=== PATIENT | female | born 1985 | race Asian ===

== ENCOUNTER 2022-02-18 13:28 | Emergency (ER) | payer MEDICAID ==
[~2022-02-18] VITALS: Ht 165.1 cm; Wt 86.2 kg
[2022-02-18] MEDS ORDERED: SODIUM CHLORIDE 0.9% 1,000 ML IVB ONE (13:45)
[2022-02-18 15:18] LABS: Basophils # (auto) 0 10 ^3/uL (0-0.2); Basophils % (auto) 0.7 % (0.0-2.0); Eosinophils # (auto) 0.2 10 ^3/uL (0-0.8); Eosinophils % (auto) 2.9 % (0.0-7.0); Hemoglobin 14.1 g/dL (12.2-16.2); Lymphocytes # (auto) 2.2 10 ^3/uL (0.4-5.4); Lymphocytes % (auto) 37.1 % (10.0-50.0); Mean Corpuscular Hemoglobin 28.9 pg (28.0-32.0); Mean Corpuscular Hgb Conc. 34.3 g/dL (32.0-36.0); Mean Corpuscular Volume 84.4 fL (80.0-100.0); Monocytes # (auto) 0.4 10 ^3/uL (0-1.3); Monocytes % (auto) 6.1 % (0.0-12.0); Neutrophils # (auto) 3.1 10 ^3/uL (1.6-8.6); Neutrophils % (auto) 53.2 % (37.0-80.0); Nucleated Red Blood Cells % 0.1 %; Red Blood Cells 4.86 10^6/uL (4.0-5.20); Red Cell Distribution Width 14.3 % (11.8-14.3); White Blood Cell 5.9 10^3/uL (4.4-10.8)
[2022-02-18 15:37] LABS: Albumin 3.7 g/dL (3.4-5.0); Anion Gap 8 (5-15); BUN/Creatinine Ratio 14.3; Blood Alcohol < 3.0 mg/dL (0-5); Blood Urea Nitrogen 14 mg/dL (7-18); Calcium 8.9 mg/dL (8.5-10.1); Carbon Dioxide 24 mmol/L (21-32); Chloride 109 mmol/L (98-107); GFR African American 83 mL/min; GFR Non-African American 69 mL/min; Glucose 105 mg/dL (74-106); Potassium 4.3 mmol/L (3.5-5.1); Sodium 141 mmol/L (136-145)
[2022-02-18 15:40] LABS: Alanine Aminotransferase 45 U/L (13-56); Alkaline Phosphatase 112 U/L (45-117); Aspartate Aminotransferase 26 U/L (15-37); Bilirubin, Total 0.3 mg/dL (0.2-1.0); Total Protein 7.3 g/dL (6.4-8.2)
[2022-02-18 17:14] VITALS: BP 134/74
[2022-02-18 18:56] LABS: Urine Bacteria None Seen /hpf (None Seen)
[2022-02-18 19:27] LABS: Alcohol, Urine < 3.0 mg/dL (0-10); Amphetamine Screen, Urine NEGATIVE (NEGATIVE); Barbiturate Scree,Urine NEGATIVE (NEGATIVE); Benzodiazephine Screen, Urine NEGATIVE (NEGATIVE); Cannabinoid Screen, Urine NEGATIVE (NEGATIVE); Cocaine Screen, Urine NEGATIVE (NEGATIVE); Opiate Scree,Urine NEGATIVE (NEGATIVE); Phencyclidine Screen, Urine NEGATIVE (NEGATIVE)
[2022-02-18 20:23] LABS: Urine Specific Gravity 1.009 (1.001-1.035)
[2022-02-18 20:24] LABS: Urine Blood Negative /uL (Negative)
[2022-02-18 20:26] LABS: Urine Mucus NONE SEEN (None Seen); Urine WBC <1 /hpf (0 - 5)
== END 2022-02-18 16:45 | disposition home or self-care (01) ==
LOC: ER 13:28
DX: S00.03XA Contusion of scalp, initial encounter (principal); R55 Syncope and collapse; I10 Essential (primary) hypertension; E11.9 Type 2 diabetes mellitus without complications; Z91.013 Allergy to seafood; W18.39XA Other fall on same level, initial encounter; Y93.89 Activity, other specified; Y92.89 Other specified places as the place of occurrence of the external cause; Y99.8 Other external cause status
CPT/HCPCS: 36415; 70450; 80053; 80307; 80320; 81001; 81025; 84484; 85025; 93005; 96360; 96361; 99285; J7030

== ENCOUNTER 2022-10-11 01:15 | Emergency (ER) | payer MEDICAID ==
[~2022-10-11] VITALS: Ht 188 cm; Wt 85.0 kg
[2022-10-11 10:00] VITALS: BP 126/74
== END 2022-10-11 10:35 | disposition home or self-care (01) ==
LOC: EDBD 01:15 → ER 01:15
DX: S09.8XXA Other specified injuries of head, initial encounter (principal); I10 Essential (primary) hypertension; Z91.013 Allergy to seafood; W18.39XA Other fall on same level, initial encounter; Y93.89 Activity, other specified; Y92.89 Other specified places as the place of occurrence of the external cause; Y99.8 Other external cause status
CPT/HCPCS: 70450; 72125

== ENCOUNTER 2023-04-14 20:02 | Emergency (ER) | payer MEDICAID ==
[~2023-04-14] VITALS: Ht 177.8 cm; Wt 89.6 kg
[2023-04-14] MEDS ORDERED: ACET-1304 PO (22:03)
[2023-04-14] MEDS ORDERED: IBUPROFEN 600 MG TAB PO ONE (22:15)
[2023-04-14 22:17] VITALS: BP 112/63
== END 2023-04-14 22:14 | disposition home or self-care (01) ==
LOC: ER 20:02
DX: S66.912A Strain of unspecified muscle, fascia and tendon at wrist and hand level, left hand, initial encounter (principal); I10 Essential (primary) hypertension; Z91.013 Allergy to seafood; W18.39XA Other fall on same level, initial encounter; Y93.89 Activity, other specified; Y92.89 Other specified places as the place of occurrence of the external cause; Y99.8 Other external cause status
CPT/HCPCS: 73110

== ENCOUNTER 2024-03-18 16:57 | Emergency (ER) | payer MEDICAID ==
[~2024-03-18] VITALS: Ht 177.8 cm; Wt 81.8 kg
[~2024-03-18 16:57] MED LIST: ACET-1304 PO
[2024-03-18 18:58] VITALS: BP 123/81; PULSE 96; RESP 20; TEMP 99; O2SAT 95
== END 2024-03-18 19:04 | disposition home or self-care (01) ==
LOC: EDBD 16:57 → ER 17:09
DX: S00.03XA Contusion of scalp, initial encounter (principal); I10 Essential (primary) hypertension; F20.9 Schizophrenia, unspecified; F31.9 Bipolar disorder, unspecified; G80.9 Cerebral palsy, unspecified; W22.8XXA Striking against or struck by other objects, initial encounter; Y93.89 Activity, other specified; Y92.89 Other specified places as the place of occurrence of the external cause; Y99.8 Other external cause status

== ENCOUNTER 2024-08-22 18:54 | Emergency (ER) | payer MEDICAID ==
[~2024-08-22] VITALS: Ht 177.8 cm; Wt 99.3 kg
--- NOTE | 2024-08-22 21:02 | DVH ---
FRONTAL CHEST AND BILATERAL RIB RADIOGRAPHS HISTORY: FALL RIB PAIN TECHNIQUE: Multiple views of the bilateral ribs with frontal view of the chest. COMPARISON: None FINDINGS: The trachea is midline. The cardiac silhouette and mediastinum are within normal limits. No pneumothorax, pleural effusions, or consolidations. There is no evidence of an acute fracture, dislocation, blastic, or lytic lesions. No radiopaque foreign bodies. No superficial soft tissue abnormalities. Impression: 1. No evidence of an acute rib fracture. 2. No acute cardiopulmonary disease.
--- NOTE | 2024-08-22 21:34 | ED.PDOC ---
Back pain HPI HPI Comments THIS IS A 39-YEAR-OLD FEMALE PRESENTS TO THE ED CHIEF COMPLAINT FALL FROM HER BED. PATIENT IS CURRENTLY A RESIDENT AT [facility]. COMMERCIAL SALES CONSULTANT CURRENTLY WITH PATIENT STATES AROUND 4:00 P.M. TODAY PATIENT GOT OUT OF HER BED AND FELL FACE DOWN LANDING ON A [place]. PATIENT IS COMPLAINING OF BILATERAL RIB PAIN 6/10 ON PAIN SCALE. DESCRIBES SHARP PAIN WORSE WITH TOUCHING. SHE DENIES ANY OTHER KNOWN INJURY. DENIES HITTING HER HEAD OR LOC. DENIES NECK PAIN, BACK PAIN OR HEADACHE. Chief Complaint: Fall Injury Time Seen by MD: 20:08 Primary Care Provider: SHAWNK Reviewed Notes: Nurses Notes, Medications, Allergies Allergies: Coded Allergies: Shellfish Allergy (Verified Allergy, Severe, 02/18/22) Home Meds Active Scripts Acetaminophen (Tylenol Extra Strength) 500 Mg Tab, 500 MG PO Q4HP PRN for 5 Days, #25 TAB Prov:CARIDADBANDAR C HOUSE SUPERINTENDENT 04/14/23 Information Source: Patient Mode of Arrival: Wheelchair Past Medical History PAST MEDICAL HISTORY: HTN, Schizophrenia Surgical History: Denies all surgeries DISH PERSON History: No Pertinent DISH PERSON History Family History Family History: Unknown Social History Smoker: Non-Smoker Alcohol: Denies ETOH Use Drugs: Denies Drug Use Lives In: Assisted Care Constitutional: denies: chills, diaphoresis, fatigue, fever, malaise, sweats, weakness, others EENTM: denies: blurred vision, double vision, ear bleeding, ear discharge, ear drainage, ear pain, ear ringing, eye pain, eye redness, hearing loss, mouth pain, mouth swelling, nasal discharge, nose bleeding, nose congestion, nose pain, photophobia, tearing, throat pain, throat swelling, voice changes, others Respiratory: denies: cough, hemoptysis, orthopnea, SOB at rest, shortness of breath, SOB with excertion, stridor, wheezing, others Cardiovascular: denies: chest pain, dizzy spells, diaphoresis, Dyspnea on exertion, edema, irregular heart beat, left arm pain, lightheadedness, palpit ations, PND, syncope, others Gastrointestinal: denies: abdomen distended, abdominal pain, blood streaked b owels, constipated, diarrhea, dysphagia, difficulty swallowing, hematemesis, melena, nausea, poor appetite, poor fluid intake, rectal bleeding, rectal pain, vomiting, others Genitourinary: denies: abnormal vagina bleeding, burning, dyspareunia, dysuria, flank pain, frequency, hematuria, incontinence, pain, , vagina discharge, urgency, others Neurological: denies: dizziness, fainting, headache, left sided numbness, left sided weakness, numbness, paresthesia, pre-existing deficit, right sided numbness, right sided weakness, seizure, speech problems, tingling, tremors, weakness, others Musculoskeletal: reports: others (RIB PAIN); denies: back pain, gout, joint pain, joint swelling, muscle pain, muscle stiffness, neck pain Integumetry: denies: bruises, change in color, change in hair/nails, dryness, laceration, lesions, lumps, rash, wounds, others Allergic/Immunocompromised: denies: Difficulty Healing, Frequent Infections, Hives, Itching, others Hematologic/Lymphatic: denies: anemia, blood clots, easy bleeding, easy bruising, swollen glands, others Endocrine: denies: excessive hunger, excessive sweating, excessive thirst, excessive urination, flushing, intolerance to cold, intolerance to heat, unexplained weight gain, unexplained weight loss, others Physical Exam General Appearance: No Apparent Distress, Normal HEENT: Normal ENT Inspection, Pharynx Normal, TMs Normal Neck: Full Range of Motion, Non-Tender, Normal, Normal Inspection Respiratory: Lungs Clear, No Accessory Muscle Use, No Respiratory Distress, Normal Breath Sounds, Other (TENDERNESS ON PALPATION OVER BILATERAL UPPER RIBCAGE NO NOTED CREPITUS, OR FLAIL CHEST. NO NOTED ECCHYMOSIS, ABRASIONS, LESIONS OR LACERATIONS.) Cardiovascular: No Edema, No JVD, No Murmur, No Gallop, Normal Peripheral Pulses, Regular Rate/Rhythm Breast Exam: Deferred Gastrointestinal: No Organomegaly, Non Tender, No Pulsatile Mass, Normal Bowel Sounds, Soft Genitalia: Deferred Pelvic: Deferred Rectal: Deferred Extremities: Normal capillary refill, Normal inspection, Normal range of motion, Non-tender, No pedal edema Musculoskeletal : Apperance: Normal Neurologic: Alert, odd bundle worker II-XII nml as Tested, No Motor Deficits, Normal Affect, Normal Mood, No Sensory Deficits Cerebellar Function: Normal Reflexes: Normal Skin: Dry, Normal Color, Warm Lymphatic: No Adenopathy Was a procedure done? Was a procedure done?: No Back Pain Differential Dx Differential Diagnosis: Fracture X-Ray, Labs, Meds, VS Vital Signs Date Time Temp Pulse Resp B/P (MAP) Pulse Ox O2 Delivery O2 Flow Rate FiO2 08/22/24 19:44 98.4 104 20 130/79 (96) 94 Time of 1ST Reevaluation: 21:33 Reevaluation 1ST: Improved Patient Education/Counseling: Diagnosis, Treatment, Prognosis, Need For Follow Up Family Education/Counseling: Diagnosis, Treatment, Prognosis, Need For Follow Up Departure 1 Departure Time of Disposition: 21:32 Impression: Primary Impression: Contusion of ribs Qualified Codes: S20.219A - Contusion of unspecified front wall of thorax, initial encounter Disposition: HOME / SELF CARE / HOMELESS Condition: Stable Discharged With: [employer] Critical Care Note Critical Care Time?: No Stability Stability form required: CARMEN Fuentes Aug 22, 2024 21:34
[2024-08-22 21:41] VITALS: BP 146/88; PULSE 98; RESP 20; TEMP 98.4; O2SAT 95
== END 2024-08-22 21:58 | disposition home or self-care (01) ==
LOC: ER 18:54
DX: S20.213A Contusion of bilateral front wall of thorax, initial encounter (principal); I10 Essential (primary) hypertension; F20.9 Schizophrenia, unspecified; Z91.013 Allergy to seafood; Z79.899 Other long term (current) drug therapy; W06.XXXA Fall from bed, initial encounter; Y93.89 Activity, other specified; Y92.89 Other specified places as the place of occurrence of the external cause; Y99.8 Other external cause status
CPT/HCPCS: 71111

== ENCOUNTER 2025-05-08 18:47 | Emergency (ER) | payer MEDICAID ==
[~2025-05-08] VITALS: Ht 180.3 cm; Wt 91.0 kg
--- NOTE | 2025-05-08 19:48 | ED.PDOC ---
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 Per ramp attendant, patient was at an assisted learning facility and threw a fit, where she shut a door and reportedly slammed her head. Per ramp attendant, it is unsure if patient had a LOC. Upon evaluation, there is no blood loss or active bleeding at the site. Patient was hard to assess and poor historian. Patient has no further complaints at this time and otherwise denies further associated symptoms of migraine, dizziness, blurred vision, N/V, fever, or chills. Chief Complaint: Head Injury Time Seen by MD: 19:42 Primary Care Provider: SHAWNK Reviewed Notes: Nurses Notes, Medications, Allergies Information Source: Patient, Legal Guardian Mode of Arrival: Ambulatory Severity: Moderate Duration: Since onset Prehospital treatment: None Headache Location: Occipital Circumstances: Spontaneous Before: Normal After: Headache History of: None Associated Signs and Symptoms: Headache Past Medical History PAST MEDICAL HISTORY: HTN, Schizophrenia Past Medical History (Other): Patient has developmental delays. Surgical History: Denies all surgeries COPING MACHINE ASSEMBLER History: No Pertinent COPING MACHINE ASSEMBLER History Family History Family History: Unknown Social History Smoker: Non-Smoker Alcohol: Denies ETOH Use Drugs: Denies Drug Use Lives In: Assisted Care Constitutional: denies: chills, diaphoresis, fatigue, fever, malaise, sweats, weakness, others EENTM: denies: blurred vision, double vision, ear bleeding, ear discharge, ear drainage, ear pain, ear ringing, eye pain, eye redness, hearing loss, mouth pain, mouth swelling, nasal discharge, nose bleeding, nose congestion, nose pain, photophobia, tearing, throat pain, throat swelling, voice changes, others Respiratory: denies: cough, hemoptysis, orthopnea, SOB at rest, shortness of breath, SOB with excertion, stridor, wheezing, others Cardiovascular: denies: chest pain, dizzy spells, diaphoresis, Dyspnea on exertion, edema, irregular heart beat, left arm pain, lightheadedness, palpitations, PND, syncope, others Gastrointestinal: denies: abdomen distended, abdominal pain, blood streaked bowels, constipated, diarrhea, dysphagia, difficulty swallowing, hematemesis, melena, nausea, poor appetite, poor fluid intake, rectal bleeding, rectal pain, vomiting, others Genitourinary: denies: abnormal vagina bleeding, burning, dyspareunia, dysuria, flank pain, frequency, hematuria, incontinence, pain, , vagina discharge, urgency, others Neurological: reports: headache; denies: dizziness, fainting, left sided numbness, left sided weakness, numbness, paresthesia, pre-existing deficit, right sided numbness, right sided weakness, seizure, speech problems, tingling, tremors, weakness, others Musculoskeletal: denies: back pain, gout, joint pain, joint swelling, muscle pain, muscle stiffness, neck pain, others Integumetry: denies: bruises, change in color, change in hair/nails, dryness, laceration, lesions, lumps, rash, wounds, others Allergic/Immunocompromised: denies: Difficulty Healing, Frequent Infections, Hives, Itching, others Hematologic/Lymphatic: denies: anemia, blood clots, easy bleeding, easy bruising, swollen glands, others Endocrine: denies: excessive hunger, excessive sweating, excessive thirst, excessive urination, flushing, intolerance to cold, intolerance to heat, unexplained weight gain, unexplained weight loss, others Psychiatric: denies: anxiety, bipolar disorder, depression, hopeless, panic disorder, schizophrenia, sleepless, suicidal, others All Other Systems: Reviewed and Negative Physical Exam General Appearance: Mild Distress (Moderate distress due to headache concerns.), Normal HEENT: Head (Posterior scalp reveals what appears to be a resolving hematoma. No skull depression or deformity. No blood loss.), Normal ENT Inspection, Phary nx Normal, TMs Normal Neck: Full Range of Motion, Non-Tender, Normal, Normal Inspection Respiratory: Chest Non-Tender, Lungs Clear, No Accessory Muscle Use, No Respiratory Distress, Normal Breath Sounds Cardiovascular: No Edema, No JVD, No Murmur, No Gallop, Normal Peripheral Pulses, Regular Rate/Rhythm Breast Exam: Deferred Gastrointestinal: No Organomegaly, Non Tender, No Pulsatile Mass, Normal Bowel Sounds, Soft Genitalia: Deferred Pelvic: Deferred Rectal: Deferred Extremities: No calf tenderness, Normal capillary refill, Normal inspection, Normal range of motion, Non-tender, No pedal edema Neurologic: Alert Cerebellar Function: NOT DONE Reflexes: NOT DONE Skin: Dry, Normal Color, Warm Lymphatic: No Adenopathy Was a procedure done? Was a procedure done?: No Differential Diagnosis (SZ) Seizure: N/A Headache: Migraine, Post-Traumatic, Other (Subarachnoid hemorrhage, subdural hematoma, skull fracture) X-Ray, Labs, Meds, VS Vital Signs Date Time Temp Pulse Resp B/P (MAP) Pulse Ox O2 Delivery O2 Flow Rate FiO2 05/08/25 19:06 98.0 95 18 130/77 (94) 98 98.0 X-Ray, Labs, Meds, VS Comment All studies performed the ED were evaluated by me personally. Imaging studies of the scalp were unremarkable for any acute intracranial concerns or skull fracture. Patient sustained some self-inflicted head trauma. Advised Tylenol and or Motrin as needed for pain relief. Time of 1ST Reevaluation: 20:59 Reevaluation 1ST: Improved Consultation: PCP Patient Education/Counseling: Diagnosis, Treatment Family Education/Counseling: Diagnosis, Treatment Medical Screening: No EMC Exist At This Time Departure 1 Departure Time of Disposition: 21:00 Impression: Primary Impression: Blunt head trauma Disposition: HOME / SELF CARE / HOMELESS Condition: Stable Additional Instructions: Advised Tylenol and or Motrin as needed for pain relief. Discharged With: Self, Cartographic Aide Critical Care Note Critical Care Time?: No Stability Stability form required: No Heart Score Heart Score: Heart Score Response (Comments) Value History N/A 0 EKG N/A 0 Age N/A 0 Risk Factors N/A 0 Troponin N/A 0 Total 0 I personally scribed for EARL LEONARD PAC ([facility]) on 05/08/25 at 19:48. Electronically submitted by Yasmin Munson [email or web address]). I personally scribed for EARL LEONARD PAC ([facility]) on 05/08/25 at 20:33. Electronically submitted by Yasmin Munson [email or web address]). EARL LEONARD PAC May 08, 2025 19:48
--- NOTE | 2025-05-08 20:44 | DVH ---
CT HEAD WITHOUT CONTRAST INDICATION: Head trauma COMPARISON: HEAD WITHOUT CONTRAST on DOS: 10/11/22, HEAD WITHOUT CONTRAST on DOS: 02/18/22 TECHNIQUE: CT of the head without intravenous contrast. RADIATION DOSE: CTDIvol: 57 mGy, DLP: 1113 mGy*cm FINDINGS: There is no evidence of acute intracranial hemorrhage, extra-axial collection, mass effect, midline s hift, herniation or hydrocephalus. The ventricles, sulci and cisterns are age appropriate. The matt -white differentiation is intact. The visualized paranasal sinuses and mastoid air cells are clear. The surrounding soft tissues and osseous structures are unremarkable. IMPRESSION: 1. No evidence of acute intracranial hemorrhage, mass effect or hydrocephalus.
[2025-05-08 21:11] VITALS: BP 106/63; PULSE 102; RESP 20; TEMP 98.1; O2SAT 97
== END 2025-05-08 21:15 | disposition home or self-care (01) ==
LOC: ER 18:47
DX: S09.8XXA Other specified injuries of head, initial encounter (principal); I10 Essential (primary) hypertension; F20.9 Schizophrenia, unspecified; Z98.890 Other specified postprocedural states; W22.09XA Striking against other stationary object, initial encounter; Y93.9 Activity, unspecified; Y92.89 Other specified places as the place of occurrence of the external cause; Y99.8 Other external cause status
CPT/HCPCS: 70450